=== PATIENT | female | born 1975 | race Caucasian/White ===

== ENCOUNTER 2018-04-06 10:29 | Emergency (ER) | payer OTHER ==
[2018-04-06 11:06] VITALS: BMI 25.4
[2018-04-06] MEDS ORDERED: SODIUM CHLORIDE 1,000 ML IV STA (13:34)
[2018-04-06 13:43] LABS: BASO % 0.7 % (0-2.0); EOS % 1.6 % (0-4.5); HEMATOCRIT 40.4 % (32.4-45.2); HEMOGLOBIN 13.6 GM/dL (10.7-15.3); LYMPH % 19.1 % (8-40); MCH 29.4 pg (25.7-33.7); MCHC 33.7 g/dl (32.0-36.0); MEAN PLT VOLUME 8.7 fl (7.5-11.1); MONO % 5.6 % (3.8-10.2); PLATELET COUNT 290 K/MM3 (134-434); RBC 4.64 M/mm3 (3.60-5.2); URINE APPEARANCE SLCLOUDY; URINE BILIRUBIN NEGATIVE (<2.0 mg/dL); URINE COLOR LTYELLOW; URINE GLUCOSE (UA) NEGATIVE (NEGATIVE); URINE KETONE NEGATIVE (NEGATIVE); URINE LEUK ESTERASE NEGATIVE (NEGATIVE); URINE NITRITE NEGATIVE (NEGATIVE); URINE PROTEIN NEGATIVE (NEGATIVE); URINE UROBILINOGEN NEGATIVE mg/dL (0.2-1.0); WHITE BLOOD COUNT 9.2 K/mm3 (4.0-10.0)
--- NOTE | 2018-04-06 13:55 | PDOC ---
History of Present Illness - General Chief Complaint: Pain Stated Complaint: PAIN (PCP SENT) Time Seen by Provider: 04/06/18 12:31 History Source: Patient Exam Limitations: Other Past History - Past Medical History Allergies/Adverse Reactions: Allergies Allergy/AdvReac Type Severity Reaction Status Date / Time Penicillins Allergy Severe Rash Verified 04/06/18 11:04 peanut Allergy Verified 04/06/18 11:04 salmon Allergy Uncoded 04/06/18 11:04 Home Medications: Ambulatory Orders Vit/Iron Fum/Folic AC [ Tablet] 1 each PO DAILY 11/12/15 Ibuprofen [Motrin -] 2 tab PO Q6H #30 tablet 04/06/18 Asthma: No Cancer: No Cardiac Disorders: Yes COPD: No Diabetes: No HTN: No Seizures: No Thyroid Disease: No - Reproductive History Is Patient Now?: No - Suicide/Smoking/Psychosocial Hx Smoking History: Never smoked Hx Alcohol Use: No Drug/Substance Use Hx: No Substance Use Type: None Hx Substance Use Treatment: No Review of Systems - Review of Systems Constitutional: Yes: Weakness. No: Chills, Fever Respiratory: No: Shortness of Breath Cardiac (ROS): No: Chest Pain ABD/GI: Yes: Abdominal cramping. No: Nausea, Vomiting : No: Dysuria *Physical Exam - Vital Signs Last Vital Signs Temp Pulse Resp BP Pulse Ox 99.2 F 86 18 98/37 L 98 04/06/18 11:05 04/06/18 11:05 04/06/18 11:05 04/06/18 11:05 04/06/18 11:05 - Physical Exam General Appearance: Yes: Appropriately Dressed. No: Apparent Distress HEENT: positive: Normal Voice Neck: positive: Supple Respiratory/Chest: negative: Respiratory Distress Female Pelvic Exam: positive: other (declines) Gastrointestinal/Abdominal: positive: Normal Bowel Sounds, Tender (to mid suprapubic area, NT over mcburneys), Soft Musculoskeletal: negative: CVA Tenderness Integumentary: positive: Dry, Warm Neurologic: positive: Fully Oriented, Alert, Normal Mood/Affect Moderate Sedation - Procedure Monitoring Vital Signs: Procedure Monitoring Vital Signs Temperature 99.2 F 04/06/18 11:05 Pulse Rate 86 04/06/18 11:05 Respiratory Rate 18 04/06/18 11:05 Blood Pressure 98/37 L 04/06/18 11:05 O2 Sat by Pulse Oximetry (%) 98 04/06/18 11:05 ED Treatment Course - LABORATORY CBC & Chemistry Diagram: 04/06/18 13:18 04/06/18 13:18 - RADIOLOGY Radiology Studies Ordered: Category Date Time Status PELVIS(OTHER) US [US] Stat Ultrasound 04/06/18 13:01 Ordered TRANSVAGINAL ULTRASOUND US [US] Stat Ultrasound 04/06/18 13:01 Ordered Medical Decision Making - Medical Decision Making 04/06/18 13:32 42 yo F, , here with irregular bleeding. Pt states she was getting normal monthly periods up until 4 and 1/2 months ago when, though she continues to get monthly periods, menses now lasting for only 2-4 days each time which is abnormal for pt. States bleeding mostly heavy. Menses currently light flow per pt. Also reports abdominal cramping since yesterday but reports she usually does get abd cramping w/ menses but current pain more severe. +weakness/ dizziness intermittently, no SOB. For unclear reasons, has not followed up with her [employer]ES [employer]. Not on control See exam DUB Hypotensive to 98/37 w/ +ttp to mid suprapubic region, declines pelvic as currently w/ light bleeding per pt -IVF -labs -US -dispo pending 04/06/18 16:05 Labs unremarkable. Ultrasound read as moderate free fluid in cul-de-sac that appears hemorrhagic. As discussed with Dr. Bean, most likely ruptured cyst. IV fluid and Toradol in progress. Will reassess 04/06/18 17:36 Pt states she feels significantly better after toradol. Repeat blood pressure 101/61. Patient states she feels well enough to go home. Given strict return precautions. Patient to follow-up with her [employer]SPORTATION SALES CONSULTANT tomorrow *DC/Admit/Observation/Transfer Diagnosis at time of Disposition: DUB (dysfunctional uterine bleeding) - Discharge Dispostion Disposition: HOME Condition at time of disposition: Improved - Prescriptions Prescriptions: Ibuprofen [Motrin -] 2 tab PO Q6H #30 tablet - Referrals Referrals: Jenny Stacy MD [Primary Care Provider] - - Patient Instructions Printed Discharge Instructions: Ovarian Cyst, DI for Vaginal Bleeding Additional Instructions: Your labs were unremarkable. Your ultrasound showed that you might have had an ovarian cyst that ruptured. Ovarian cysts are common in healthy young women and can rupture at times. This can be painful but usually resolves in time with pain medication such as 800mg motrin or tylenol If symptoms worsen, return to the ER Otherwise, please follow up with your TRANSPORTATION SALES CONSULTANT in the am - Post Discharge Activity
[2018-04-06 14:11] LABS: EPI CELLS RARE /HPF (FEW)
--- NOTE | 2018-04-06 14:21 | PDOC ---
*Physical Exam - Vital Signs Last Vital Signs Temp Pulse Resp BP Pulse Ox 99.2 F 86 18 98/37 L 98 04/06/18 11:05 04/06/18 11:05 04/06/18 11:05 04/06/18 11:05 04/06/18 11:05 - Physical Exam Comments: 04/06/18 14:21 The patient was examined by [RADHA Orosco] under my direct supervision. I personally evaluated the patient. I concur with the above findings and the plan of care. ED Treatment Course - LABORATORY CBC & Chemistry Diagram: 04/06/18 13:18 04/06/18 13:18 - ADDITIONAL ORDERS Additional order review: Laboratory Results 04/06/18 13:18 Urine Color Ltyellow Urine Appearance Slcloudy Urine pH 7.0 Ur Specific [place] 1.013 Urine Protein Negative Urine Glucose (UA) Negative Urine Ketones Negative Urine Blood 3+ H Urine Nitrite Negative Urine Bilirubin Negative Urine Urobilinogen Negative Ur Leukocyte Esterase Negative Urine WBC (Auto) None Urine RBC (Auto) 367 Ur Epithelial Cells Rare 04/06/18 13:18 RBC 4.64 MCV 87.0 MCHC 33.7 RDW 14.0 D MPV 8.7 Neutrophils % 73.0 Lymphocytes % 19.1 D Monocytes % 5.6 Eosinophils % 1.6 D Basophils % 0.7 *DC/Admit/Observation/Transfer - Referrals Referrals: Jenny Stacy MD [Primary Care Provider] - - Patient Instructions - Post Discharge Activity
[2018-04-06 14:33] LABS: ALK PHOS 78 U/L (45-117); ANION GAP 5 MMOL/L (8-16); BILIRUBIN,TOTAL 0.7 mg/dL (0.2-1); BLOOD UREA NITROGEN 11 mg/dL (7-18); CALCIUM 8.7 mg/dL (8.5-10.1); CHLORIDE 105 mmol/L (98-107); CO2 29 mmol/L (21-32); CREATININE 0.5 mg/dL (0.55-1.3); GLUCOSE,RANDOM 76 mg/dL (74-106); POTASSIUM 4.2 mmol/L (3.5-5.1); SGOT/AST 13 U/L (15-37); SGPT/ALT 19 U/L (13-61); SODIUM 139 mmol/L (136-145); TOT PROT 7.5 g/dl (6.4-8.2)
[2018-04-06 15:17] LABS: INR 1.04 (0.83-1.09); PROTHROMBIN TIME (PATIENT) 12.3 SEC (9.7-13.0)
[2018-04-06] MEDS ORDERED: KETOROLAC TROMETHAMINE 30 MG/1 ML VIAL IVPUSH ONE (16:00)
[2018-04-06] MEDS ORDERED: KETOROLAC TROMETHAMINE 30 MG/1 ML VIAL ONE (16:01)
[2018-04-06 16:41] VITALS: TEMP 99.1
[2018-04-06 17:41] VITALS: BP 101/61
[2018-04-06 17:42] VITALS: PULSE 91
== END 2018-04-06 17:43 | disposition home or self-care (01) ==
LOC: JER 10:29
PROC: 3E0333Z Introduction of Anti-inflammatory into Peripheral Vein, Percutaneous Approach (ICD-10-PCS; principal; 2018-04-06)
PROC: 3E0337Z Introduction of Electrolytic and Water Balance Substance into Peripheral Vein, Percutaneous Approach (ICD-10-PCS; 2018-04-06)
DX: N93.8 Other specified abnormal uterine and vaginal bleeding (principal)
CPT/HCPCS: 36415; 76830-TC; 76856-TC; 80053; 81003; 81015; 84703; 85025; 85610; 86850; 86900; 86901; 99283-25; J7030

== ENCOUNTER 2024-03-22 08:06 | Emergency (ER) | payer OTHER ==
[2024-03-22 08:17] VITALS: BP 98/56; PULSE 82; RESP 16; TEMP 98.4; BMI 27.3
[2024-03-22] MEDS ORDERED: FLUORESCEIN NA 1 EA STRIP ONE (09:03)
[2024-03-22] MEDS: FLUORESCEIN NA 1 EA STRIP OS ONE (09:37)
== END 2024-03-22 10:16 | disposition left against medical advice (07) ==
LOC: JERFT 08:06
DX: H40.052 Ocular hypertension, left eye (principal); R51.9 Headache, unspecified
CPT/HCPCS: 99283-25